=== PATIENT | female | born 1965 | race Caucasian/White ===

== ENCOUNTER 2017-10-07 17:37 | Emergency (ER) | payer OTHER ==
[2017-10-07] MEDS ORDERED: Ketorolac Tromethamine 30 MG/ML VIAL ONE (19:01)
[2017-10-07] MEDS ORDERED: Ibuprofen 200 MG TAB ONE (19:07)
--- NOTE | 2017-10-07 19:30 | RAD ---
RIGHT KNEE FOUR VIEWS: HISTORY: Right knee pain. FINDINGS: Mild degenerative changes are present. No fracture, dislocation, or bony destruction is identified. POS: [facility]
== END 2017-10-07 19:11 | disposition home or self-care (01) ==
LOC: ERS 17:37
DX: M25.561 Pain in right knee (principal); E11.9 Type 2 diabetes mellitus without complications; I10 Essential (primary) hypertension; E66.9 Obesity, unspecified
CPT/HCPCS: J1885

== ENCOUNTER 2019-12-29 14:22 | Outpatient (CLI) | payer OTHER ==
--- NOTE | 2019-12-29 14:40 | RAD ---
EXAM: 2 views of the right hip HISTORY: Right hip pain COMPARISON: None FINDINGS: 2 views of the right hip shows no evidence of acute fracture or dislocation. No degenerativ e changes are seen. No soft tissue swelling is present. IMPRESSION: No evidence of acute osseous abnormality.
== END 2019-12-29 14:23 | disposition home or self-care (01) ==
LOC: BICRAD 14:22
PROVIDERS: ATTEND Family Medicine
DX: M25.551 Pain in right hip (principal)